=== PATIENT | male | born 2000 ===

== ENCOUNTER 2022-02-12 16:27 | Emergency (ER) | payer OTHER, MEDICAID, SELFPAY ==
[2022-02-12] VITALS (23 sets, daily range): BP systolic 93–147; BP diastolic 49–67; PULSE 42–114; RESP 17–32; O2SAT 94–100; BMI 15.6
[2022-02-12] MEDS: diphenhydrAMINE 50 MG/ML VIAL (17:12)
[2022-02-12] MEDS: diazePAM 10 MG/2 ML SYRINGE (17:12)
--- NOTE | 2022-02-12 17:29 | ED.PSYCH ---
HPI - Psych <Asya Edmondson DO - Last Filed: 02/13/22 08:10> General Chief Complaint: Psychiatric Symptoms Stated Complaint: Violent, Scratching self and others Time Seen by Provider: 02/12/22 17:10 History of Present Illness HPI Narrative: Patient is a 21-year-old male history of autism and seizures presenting by mom for increased agitation and scratching. He is nonverbal. He has been on Vimpat for seizure medication for years. They apparently tried weaning off Vimpat and adding Topamax. The agitation started getting severe about 5 days ago. He is scratching quite aggressively at himself and at her. She is unable to manage him. Clonazepam was also added to the regimen. He overall is quite agitated and redirectable at this time. Related Data Previous Rx's Medication Instructions Recorded clonazepam 0.5 mg tablet 0.5 mg PO BEDTIME #10 tabs 02/12/22 quetiapine 25 mg tablet (Seroquel) 25 mg PO DAILY PRN agitation #10 02/12/22 tabs zonisamide 100 mg capsule 100 mg PO DAILY #10 caps 02/12/22 Allergies Allergy/AdvReac Type Severity Reaction Status Date / Time perfume AdvReac Verified 02/12/22 18:18 Review of Systems <Asya Edmondson DO - Last Filed: 02/13/22 08:10> Review of Systems Narrative: Unable to obtain Exam <Asya Edmondson DO - Last Filed: 02/13/22 08:10> Initial Vital Signs Initial Vital Signs: Vital Signs Pulse Rate 114 H 02/12/22 17:34 Pulse Oximetry 96 02/12/22 17:34 Oxygen Delivery Method 02/12/22 17:34 Gen.: Awake alert agitated, thin HEENT: Atraumatic EOMI Neck: No JVD Lungs: Clear bilaterally Cardiac: Regular rate no murmur Abdomen: Soft Extremities: Moving all extremities hands are in mits Neurologic: Nonverbal at baseline per mom Skin: Scratches on legs and abdomen <Christina Becker, DO - Last Filed: 02/13/22 02:29> Initial Vital Signs Initial Vital Signs: Vital Signs Pulse Rate 114 H 02/12/22 17:34 Pulse Oximetry 96 02/12/22 17:34 Oxygen Delivery Method 02/12/22 17:34 Course <Asya Edmondson, DO - Last Filed: 02/13/22 08:10> Orders Ordered: Discontinued Medications Ketamine HCl (Ketamine 500 Mg/5 Ml Inj) 180 mg IM NOW ONE Stop: 02/12/22 17:41 Last Admin: 02/12/22 18:13 Dose: Not Given Documented By: AIDEN Zonisamide (Zonisamide 100 Mg Capsule) 100 mg PO NOW ONE Stop: 02/12/22 21:57 Last Admin: 02/12/22 22:21 Dose: 100 mg Documented By: AIDEN Vital Signs Vital signs: Vital Signs - 8 hr 02/12/22 18:30 02/12/22 18:30 02/12/22 18:53 Pulse Rate 50 L Respiratory Rate 21 Blood Pressure 100/57 L 102/55 L Pulse Oximetry 99 Oxygen Delivery Method 02/12/22 18:53 02/12/22 19:00 02/12/22 19:00 Pulse Rate 47 L 46 L Respiratory Rate 25 H 30 H Blood Pressure 101/58 L Pulse Oximetry 100 97 Oxygen Delivery Method 02/12/22 19:15 02/12/22 19:15 02/12/22 19:30 Pulse Rate 45 L Respiratory Rate 29 H Blood Pressure 97/53 L 105/57 L Pulse Oximetry 100 Oxygen Delivery Method 02/12/22 19:30 02/12/22 19:45 02/12/22 19:45 Pulse Rate 45 L 48 L Respiratory Rate 28 H 25 H Blood Pressure 105/57 L Pulse Oximetry 100 98 Oxygen Delivery Method 02/12/22 20:00 02/12/22 20:00 02/12/22 20:16 Pulse Rate 48 L 74 Respiratory Rate 25 H 26 H Blood Pressure 103/55 L Pulse Oximetry 99 99 Oxygen Delivery Method 02/12/22 20:16 02/12/22 20:30 02/12/22 20:30 Pulse Rate 47 L Respiratory Rate 25 H Blood Pressure 108/58 L 93/51 L Pulse Oximetry 99 Oxygen Delivery Method 02/12/22 20:45 02/12/22 20:45 02/12/22 21:00 Pulse Rate 45 L Respiratory Rate 19 Blood Pressure 104/60 105/60 Pulse Oximetry 99 Oxygen Delivery Method 02/12/22 21:00 02/12/22 21:15 02/12/22 21:15 Pulse Rate 42 L 55 L Respiratory Rate 20 21 Blood Pressure 110/67 Pulse Oximetry 100 94 Oxygen Delivery Method 02/12/22 21:30 02/12/22 21:30 02/12/22 21:45 Pulse Rate 48 L 47 L Respiratory Rate Blood Pressure 98/59 L Pulse Oximetry 99 99 Oxygen Delivery Method 02/12/22 21:49 02/12/22 21:49 02/12/22 22:00 Pulse Rate 45 L Respiratory Rate Blood Pressure 101/63 99/61 Pulse Oximetry 98 Oxygen Delivery Method 02/12/22 22:00 02/12/22 22:15 02/12/22 22:15 Pulse Rate 44 L 43 L Respiratory Rate 17 Blood Pressure 97/59 L Pulse Oximetry 100 99 Oxygen Delivery Method Room Air <Christina Becker DO - Last Filed: 02/13/22 02:29> Orders Ordered: Discontinued Medications Ketamine HCl (Ketamine 500 Mg/5 Ml Inj) 180 mg IM NOW ONE Stop: 02/12/22 17:41 Last Admin: 02/12/22 18:13 Dose: Not Given Documented By: AIDEN Zonisamide (Zonisamide 100 Mg Capsule) 100 mg PO NOW ONE Stop: 02/12/22 21:57 Last Admin: 02/12/22 22:21 Dose: 100 mg Documented By: AIDEN Consultations Consultation #1: 2nd callback from Neurology with [facility], Rip Quinteros neurology spoke with colleague from epilepsy subspecialty and this time they recommend adding zonisamide 100 mg daily. Clonazepam should only we meet down slowly can decreased by 0.5 mg on the evening dose but continue all other doses at this time. Continue Vimpat at current dosage. Did discuss possibly an antipsychotic and mom had stated patient had Seroquel in the past remotely and could give a short as needed course for this. But patient will need to follow-up with primary care or Psychiatry for recommendations this referral has already been made Time: 22:19 Vital Signs Vital signs: Vital Signs - 8 hr 02/12/22 18:30 02/12/22 18:30 02/12/22 18:53 Pulse Rate 50 L Respiratory Rate 21 Blood Pressure 100/57 L 102/55 L Pulse Oximetry 99 Oxygen Delivery Method 02/12/22 18:53 02/12/22 19:00 02/12/22 19:00 Pulse Rate 47 L 46 L Respiratory Rate 25 H 30 H Blood Pressure 101/58 L Pulse Oximetry 100 97 Oxygen Delivery Method 02/12/22 19:15 02/12/22 19:15 02/12/22 19:30 Pulse Rate 45 L Respiratory Rate 29 H Blood Pressure 97/53 L 105/57 L Pulse Oximetry 100 Oxygen Delivery Method 02/12/22 19:30 02/12/22 19:45 02/12/22 19:45 Pulse Rate 45 L 48 L Respiratory Rate 28 H 25 H Blood Pressure 105/57 L Pulse Oximetry 100 98 Oxygen Delivery Method 02/12/22 20:00 02/12/22 20:00 02/12/22 20:16 Pulse Rate 48 L 74 Respiratory Rate 25 H 26 H Blood Pressure 103/55 L Pulse Oximetry 99 99 Oxygen Delivery Method 02/12/22 20:16 02/12/22 20:30 02/12/22 20:30 Pulse Rate 47 L Respiratory Rate 25 H Blood Pressure 108/58 L 93/51 L Pulse Oximetry 99 Oxygen Delivery Method 02/12/22 20:45 02/12/22 20:45 02/12/22 21:00 Pulse Rate 45 L Respiratory Rate 19 Blood Pressure 104/60 105/60 Pulse Oximetry 99 Oxygen Delivery Method 02/12/22 21:00 02/12/22 21:15 02/12/22 21:15 Pulse Rate 42 L 55 L Respiratory Rate 20 21 Blood Pressure 110/67 Pulse Oximetry 100 94 Oxygen Delivery Method 02/12/22 21:30 02/12/22 21:30 02/12/22 21:45 Pulse Rate 48 L 47 L Respiratory Rate Blood Pressure 98/59 L Pulse Oximetry 99 99 Oxygen Delivery Method 02/12/22 21:49 02/12/22 21:49 02/12/22 22:00 Pulse Rate 45 L Respiratory Rate Blood Pressure 101/63 99/61 Pulse Oximetry 98 Oxygen Delivery Method 02/12/22 22:00 02/12/22 22:15 02/12/22 22:15 Pulse Rate 44 L 43 L Respiratory Rate 17 Blood Pressure 97/59 L Pulse Oximetry 100 99 Oxygen Delivery Method Room Air MDM - Psych <Asya Edmondson DO - Last Filed: 02/13/22 08:10> Lab Data Result diagrams: 02/12/22 17:55 02/12/22 17:55 Labs: Lab Results 02/12/22 02/12/22 02/12/22 Range/Units 17:55 17:55 17:55 WBC 4.5 (4.5-11.0) X10^3/uL RBC 4.73 (4.5-5.9) X10^6/uL Hgb 13.5 (13.5-17.5) g/dL Hct 39.8 L (41-53) % MCV 84.3 (80-100) fL MCH 28.6 (26-34) PG MCHC 33.9 (30-36) % RDW 12.9 (11.6-14.8) % Plt Count 263 (150-400) X10^3/uL Neut % (Auto) 51.9 (50-75) % Lymph % (Auto) 37.2 (25-40) % [place] % (Auto) 7.8 (3-14) % Eos % (Auto) 2.1 (2-4) % Baso % (Auto) 1.0 (0-2) % Neut # (Auto) 2300 (5275-9151) /uL Lymph # (Auto) 1700 (1531-4440) /uL [place] # (Auto) 400 (0-900) /uL Eos # (Auto) 100 (0-450) /uL Baso # (Auto) 0 (0-100) /uL Sodium 136 L (137-145) mmol/L Potassium 3.7 (3.4-5.1) mmol/L Chloride 102 (98-107) mmol/L Carbon Dioxide 26 (22-32) mmol/L BUN 23 H (9-20) mg/dL Creatinine 0.71 (0.66-1.25) mg/dL Estimated GFR > 60 (>60) mL/min BUN/Creatinine Ratio 32.4 H (6-22) Glucose 99 (70-100) mg/dL Lactate 3.0 H (0.7-2.1) mmol/L Calcium 9.1 (8.4-10.2) mg/dL Total Bilirubin 0.5 (0.2-1.3) mg/dL AST 42 (17-59) IU/L ALT 29 (<50) IU/L Alkaline Phosphatase 57 (38-126) U/L Total Creatine Kinase (55-170) U/L CK-MB (CK-2) (<2.37) ng/mL CK-MB (CK-2) Rel Index (1.5-5.0) % Troponin I (0.01-0.034) ng/mL Total Protein 7.0 (6.3-8.2) g/dL Albumin 4.3 (3.5-5.0) g/dL Globulin 2.7 (1.7-4.1) g/dL Albumin/Globulin Ratio 1.6 (1.0-2.8) Procalcitonin < 0.03 (<0.5) ng/mL Urine Color Urine Appearance Urine pH (4.5-8.0) Ur Specific [place] (1.000-1.035) Urine Protein (Negative) Urine Glucose (UA) (Negative) g/dL Urine Ketones (NEGATIVE) Urine Occult Blood (Negative) Urine Nitrate (Negative) Urine Bilirubin (NEGATIVE) Urine Urobilinogen (0.2) E.U./dL Ur Leukocyte Esterase (NEGATIVE) Urine RBC (0-5/HPF) Urine WBC (0-5/HPF) Ur Squamous Epith Cells (0-5/HPF) Ur Transition Epith Cell (0-5/HPF) Amorphous Sediment Urine Bacteria (None) Hyaline Casts (None) Urine Mucus (Negative) Ur Culture Indicated? SARS-CoV-2 (PCR) (Negative) 02/12/22 02/12/22 02/12/22 Range/Units 17:55 18:10 18:12 WBC (4.5-11.0) X10^3/uL RBC (4.5-5.9) X10^6/uL Hgb (13.5-17.5) g/dL Hct (41-53) % MCV (80-100) fL MCH (26-34) PG MCHC (30-36) % RDW (11.6-14.8) % Plt Count (150-400) X10^3/uL Neut % (Auto) (50-75) % Lymph % (Auto) (25-40) % [place] % (Auto) (3-14) % Eos % (Auto) (2-4) % Baso % (Auto) (0-2) % Neut # (Auto) (7781-4104) /uL Lymph # (Auto) (5287-6463) /uL [place] # (Auto) (0-900) /uL Eos # (Auto) (0-450) /uL Baso # (Auto) (0-100) /uL Sodium (137-145) mmol/L Potassium (3.4-5.1) mmol/L Chloride (98-107) mmol/L Carbon Dioxide (22-32) mmol/L BUN (9-20) mg/dL Creatinine (0.66-1.25) mg/dL Estimated GFR (>60) mL/min BUN/Creatinine Ratio (6-22) Glucose (70-100) mg/dL Lactate (0.7-2.1) mmol/L Calcium (8.4-10.2) mg/dL Total Bilirubin (0.2-1.3) mg/dL AST (17-59) IU/L ALT (<50) IU/L Alkaline Phosphatase (38-126) U/L Total Creatine Kinase 615 H (55-170) U/L CK-MB (CK-2) 4.24 H (<2.37) ng/mL CK-MB (CK-2) Rel Index 0.7 L (1.5-5.0) % Troponin I < 0.012 (0.01-0.034) ng/mL Total Protein (6.3-8.2) g/dL Albumin (3.5-5.0) g/dL Globulin (1.7-4.1) g/dL Albumin/Globulin Ratio (1.0-2.8) Procalcitonin (<0.5) ng/mL Urine Color Yellow Urine Appearance Clear Urine pH 5.5 (4.5-8.0) Ur Specific [place] >=1.030 H (1.000-1.035) Urine Protein Trace H (Negative) Urine Glucose (UA) Negative (Negative) g/dL Urine Ketones Trace H (NEGATIVE) Urine Occult Blood 2+ H (Negative) Urine Nitrate Negative (Negative) Urine Bilirubin Negative (NEGATIVE) Urine Urobilinogen 0.2 (0.2) E.U./dL Ur Leukocyte Esterase Negative (NEGATIVE) Urine RBC 10-30/hpf H (0-5/HPF) Urine WBC 1-5/hpf (0-5/HPF) Ur Squamous Epith Cells 1-5 /hpf (0-5/HPF) Ur Transition Epith Cell 1-5/hpf (0-5/HPF) Amorphous Sediment 1+ Urine Bacteria Occasional (0-1) (None) Hyaline Casts 5-10/lpf (None) Urine Mucus 1+ H (Negative) Ur Culture Indicated? Cult not indicated SARS-CoV-2 (PCR) Negative (Negative) 02/12/22 Range/Units 21:11 WBC (4.5-11.0) X10^3/uL RBC (4.5-5.9) X10^6/uL Hgb (13.5-17.5) g/dL Hct (41-53) % MCV (80-100) fL MCH (26-34) PG MCHC (30-36) % RDW (11.6-14.8) % Plt Count (150-400) X10^3/uL Neut % (Auto) (50-75) % Lymph % (Auto) (25-40) % [place] % (Auto) (3-14) % Eos % (Auto) (2-4) % Baso % (Auto) (0-2) % Neut # (Auto) (3013-7520) /uL Lymph # (Auto) (2909-8057) /uL [place] # (Auto) (0-900) /uL Eos # (Auto) (0-450) /uL Baso # (Auto) (0-100) /uL Sodium (137-145) mmol/L Potassium (3.4-5.1) mmol/L Chloride (98-107) mmol/L Carbon Dioxide (22-32) mmol/L BUN (9-20) mg/dL Creatinine (0.66-1.25) mg/dL Estimated GFR (>60) mL/min BUN/Creatinine Ratio (6-22) Glucose (70-100) mg/dL Lactate 0.8 (0.7-2.1) mmol/L Calcium (8.4-10.2) mg/dL Total Bilirubin (0.2-1.3) mg/dL AST (17-59) IU/L ALT (<50) IU/L Alkaline Phosphatase (38-126) U/L Total Creatine Kinase (55-170) U/L CK-MB (CK-2) (<2.37) ng/mL CK-MB (CK-2) Rel Index (1.5-5.0) % Troponin I (0.01-0.034) ng/mL Total Protein (6.3-8.2) g/dL Albumin (3.5-5.0) g/dL Globulin (1.7-4.1) g/dL Albumin/Globulin Ratio (1.0-2.8) Procalcitonin (<0.5) ng/mL Urine Color Urine Appearance Urine pH (4.5-8.0) Ur Specific [place] (1.000-1.035) Urine Protein (Negative) Urine Glucose (UA) (Negative) g/dL Urine Ketones (NEGATIVE) Urine Occult Blood (Negative) Urine Nitrate (Negative) Urine Bilirubin (NEGATIVE) Urine Urobilinogen (0.2) E.U./dL Ur Leukocyte Esterase (NEGATIVE) Urine RBC (0-5/HPF) Urine WBC (0-5/HPF) Ur Squamous Epith Cells (0-5/HPF) Ur Transition Epith Cell (0-5/HPF) Amorphous Sediment Urine Bacteria (None) Hyaline Casts (None) Urine Mucus (Negative) Ur Culture Indicated? SARS-CoV-2 (PCR) (Negative) MDM Narrative Medical decision making narrative: The patient is not redirectable. Mom wants him checked out. This is not his normal behavior. He takes benzos at baseline. He is given initially Valium and Benadryl to help calm him however that needed to be re-dosed so he received a total of 5 mg Valium 50 of Benadryl. Still not calming down. He is given 5 mg of Haldol all in a blanket was placed around 2. He finally did start to calm down. We were able to transfer him start an IV and blood work. Agitation may be secondary to medication changes versus infection. Patient signed out to Dr. Becker for further management <Christina Becker, - Last Filed: 02/13/22 02:29> Lab Data Labs: Lab Results 02/12/22 02/12/22 02/12/22 Range/Units 17:55 17:55 17:55 WBC 4.5 (4.5-11.0) X10^3/uL RBC 4.73 (4.5-5.9) X10^6/uL Hgb 13.5 (13.5-17.5) g/dL Hct 39.8 L (41-53) % MCV 84.3 (80-100) fL MCH 28.6 (26-34) PG MCHC 33.9 (30-36) % RDW 12.9 (11.6-14.8) % Plt Count 263 (150-400) X10^3/uL Neut % (Auto) 51.9 (50-75) % Lymph % (Auto) 37.2 (25-40) % [place] % (Auto) 7.8 (3-14) % Eos % (Auto) 2.1 (2-4) % Baso % (Auto) 1.0 (0-2) % Neut # (Auto) 2300 (5368-4717) /uL Lymph # (Auto) 1700 (8401-6910) /uL [place] # (Auto) 400 (0-900) /uL Eos # (Auto) 100 (0-450) /uL Baso # (Auto) 0 (0-100) /uL Sodium 136 L (137-145) mmol/L Potassium 3.7 (3.4-5.1) mmol/L Chloride 102 (98-107) mmol/L Carbon Dioxide 26 (22-32) mmol/L BUN 23 H (9-20) mg/dL Creatinine 0.71 (0.66-1.25) mg/dL Estimated GFR > 60 (>60) mL/min BUN/Creatinine Ratio 32.4 H (6-22) Glucose 99 (70-100) mg/dL Lactate 3.0 H (0.7-2.1) mmol/L Calcium 9.1 (8.4-10.2) mg/dL Total Bilirubin 0.5 (0.2-1.3) mg/dL AST 42 (17-59) IU/L ALT 29 (<50) IU/L Alkaline Phosphatase 57 (38-126) U/L Total Creatine Kinase (55-170) U/L CK-MB (CK-2) (<2.37) ng/mL CK-MB (CK-2) Rel Index (1.5-5.0) % Troponin I (0.01-0.034) ng/mL Total Protein 7.0 (6.3-8.2) g/dL Albumin 4.3 (3.5-5.0) g/dL Globulin 2.7 (1.7-4.1) g/dL Albumin/Globulin Ratio 1.6 (1.0-2.8) Procalcitonin < 0.03 (<0.5) ng/mL Urine Color Urine Appearance Urine pH (4.5-8.0) Ur Specific [place] (1.000-1.035) Urine Protein (Negative) Urine Glucose (UA) (Negative) g/dL Urine Ketones (NEGATIVE) Urine Occult Blood (Negative) Urine Nitrate (Negative) Urine Bilirubin (NEGATIVE) Urine Urobilinogen (0.2) E.U./dL Ur Leukocyte Esterase (NEGATIVE) Urine RBC (0-5/HPF) Urine WBC (0-5/HPF) Ur Squamous Epith Cells (0-5/HPF) Ur Transition Epith Cell (0-5/HPF) Amorphous Sediment Urine Bacteria (None) Hyaline Casts (None) Urine Mucus (Negative) Ur Culture Indicated? SARS-CoV-2 (PCR) (Negative) 02/12/22 02/12/22 02/12/22 Range/Units 17:55 18:10 18:12 WBC (4.5-11.0) X10^3/uL RBC (4.5-5.9) X10^6/uL Hgb (13.5-17.5) g/dL Hct (41-53) % MCV (80-100) fL MCH (26-34) PG MCHC (30-36) % RDW (11.6-14.8) % Plt Count (150-400) X10^3/uL Neut % (Auto) (50-75) % Lymph % (Auto) (25-40) % [place] % (Auto) (3-14) % Eos % (Auto) (2-4) % Baso % (Auto) (0-2) % Neut # (Auto) (7916-9116) /uL Lymph # (Auto) (7619-8885) /uL [place] # (Auto) (0-900) /uL Eos # (Auto) (0-450) /uL Baso # (Auto) (0-100) /uL Sodium (137-145) mmol/L Potassium (3.4-5.1) mmol/L Chloride (98-107) mmol/L Carbon Dioxide (22-32) mmol/L BUN (9-20) mg/dL Creatinine (0.66-1.25) mg/dL Estimated GFR (>60) mL/min BUN/Creatinine Ratio (6-22) Glucose (70-100) mg/dL Lactate (0.7-2.1) mmol/L Calcium (8.4-10.2) mg/dL Total Bilirubin (0.2-1.3) mg/dL AST (17-59) IU/L ALT (<50) IU/L Alkaline Phosphatase (38-126) U/L Total Creatine Kinase 615 H (55-170) U/L CK-MB (CK-2) 4.24 H (<2.37) ng/mL CK-MB (CK-2) Rel Index 0.7 L (1.5-5.0) % Troponin I < 0.012 (0.01-0.034) ng/mL Total Protein (6.3-8.2) g/dL Albumin (3.5-5.0) g/dL Globulin (1.7-4.1) g/dL Albumin/Globulin Ratio (1.0-2.8) Procalcitonin (<0.5) ng/mL Urine Color Yellow Urine Appearance Clear Urine pH 5.5 (4.5-8.0) Ur Specific [place] >=1.030 H (1.000-1.035) Urine Protein Trace H (Negative) Urine Glucose (UA) Negative (Negative) g/dL Urine Ketones Trace H (NEGATIVE) Urine Occult Blood 2+ H (Negative) Urine Nitrate Negative (Negative) Urine Bilirubin Negative (NEGATIVE) Urine Urobilinogen 0.2 (0.2) E.U./dL Ur Leukocyte Esterase Negative (NEGATIVE) Urine RBC 10-30/hpf H (0-5/HPF) Urine WBC 1-5/hpf (0-5/HPF) Ur Squamous Epith Cells 1-5 /hpf (0-5/HPF) Ur Transition Epith Cell 1-5/hpf (0-5/HPF) Amorphous Sediment 1+ Urine Bacteria Occasional (0-1) (None) Hyaline Casts 5-10/lpf (None) Urine Mucus 1+ H (Negative) Ur Culture Indicated? Cult not indicated SARS-CoV-2 (PCR) Negative (Negative) 02/12/22 Range/Units 21:11 WBC (4.5-11.0) X10^3/uL RBC (4.5-5.9) X10^6/uL Hgb (13.5-17.5) g/dL Hct (41-53) % MCV (80-100) fL MCH (26-34) PG MCHC (30-36) % RDW (11.6-14.8) % Plt Count (150-400) X10^3/uL Neut % (Auto) (50-75) % Lymph % (Auto) (25-40) % [place] % (Auto) (3-14) % Eos % (Auto) (2-4) % Baso % (Auto) (0-2) % Neut # (Auto) (7867-4025) /uL Lymph # (Auto) (2782-3338) /uL [place] # (Auto) (0-900) /uL Eos # (Auto) (0-450) /uL Baso # (Auto) (0-100) /uL Sodium (137-145) mmol/L Potassium (3.4-5.1) mmol/L Chloride (98-107) mmol/L Carbon Dioxide (22-32) mmol/L BUN (9-20) mg/dL Creatinine (0.66-1.25) mg/dL Estimated GFR (>60) mL/min BUN/Creatinine Ratio (6-22) Glucose (70-100) mg/dL Lactate 0.8 (0.7-2.1) mmol/L Calcium (8.4-10.2) mg/dL Total Bilirubin (0.2-1.3) mg/dL AST (17-59) IU/L ALT (<50) IU/L Alkaline Phosphatase (38-126) U/L Total Creatine Kinase (55-170) U/L CK-MB (CK-2) (<2.37) ng/mL CK-MB (CK-2) Rel Index (1.5-5.0) % Troponin I (0.01-0.034) ng/mL Total Protein (6.3-8.2) g/dL Albumin (3.5-5.0) g/dL Globulin (1.7-4.1) g/dL Albumin/Globulin Ratio (1.0-2.8) Procalcitonin (<0.5) ng/mL Urine Color Urine Appearance Urine pH (4.5-8.0) Ur Specific [place] (1.000-1.035) Urine Protein (Negative) Urine Glucose (UA) (Negative) g/dL Urine Ketones (NEGATIVE) Urine Occult Blood (Negative) Urine Nitrate (Negative) Urine Bilirubin (NEGATIVE) Urine Urobilinogen (0.2) E.U./dL Ur Leukocyte Esterase (NEGATIVE) Urine RBC (0-5/HPF) Urine WBC (0-5/HPF) Ur Squamous Epith Cells (0-5/HPF) Ur Transition Epith Cell (0-5/HPF) Amorphous Sediment Urine Bacteria (None) Hyaline Casts (None) Urine Mucus (Negative) Ur Culture Indicated? SARS-CoV-2 (PCR) (Negative) Imaging Data CT scan - head: Radiologist's Impression: [address] [address] [address] Scan Report Signed Patient: Matt Franklin MR#: [id number] : 2000 Acct:[id number] Age/Sex: 21 / M Date of Service: 02/12/22 Loc: ED Accession Number: [id number] ?? Procedure: CT head/brain wo con Ordering Provider: Christina Becker D.O. PROCEDURE:? CT HEAD/BRAIN WO CON ? INDICATIONS:? altered behavior ? TECHNIQUE:? Noncontrast 4.5 mm thick angled axial sections acquired from the foramen magnum to the vertex, with coronal and sagittal reformats.? For radiation dose reduction, the following was used:? automated exposure control, adjustment of mA and/or kV according to patient size.? ? COMPARISON:? None. ? FINDINGS:? Image quality:? Excellent.? ? CSF spaces:? Basal cisterns are patent.? No extra-axial fluid collections.? Ventricles are normal in size and shape.? ? Brain:? No midline shift.? No intracranial masses or hemorrhage.? Cheek-white matter interface is normal.? ? Skull and face:? Calvarium and visualized facial bones are intact, without suspicious lesions.? ? Sinuses:? Visualized sinuses and mastoids are clear.? ? IMPRESSION:? No evidence acute intracranial process. ? ? Dictated by: Robert Guzman M.D. on 02/12/2022 at 19:33 ? ? Approved by: Robert Guzman M.D. on 02/12/2022 at 19:34?? Chest x-ray: Radiologist's Impression: Close Chest X-Ray (Signed) ThomasAfshinRobert - 02/12/[address] (Signed) Afshin Guzmanderic - 02/12/22 Launch?[address] [address] XRay Report Signed Patient: Matt Franklin MR#: [id number] : 2000 Acct:[id number] Age/Sex: 21 / M Date of Service: 02/12/22 Loc: ED Accession Number: [id number] ?? Procedure: XR chest 1V Ordering Provider: Christina Becker D.O. PROCEDURE:? XR CHEST 1V ? INDICATIONS:? altered behavior ? TECHNIQUE:? One view of the chest was acquired.? ? COMPARISON:? None. ? FINDINGS:? ? Surgical changes and devices:? None.? ? Lungs and pleura:? Lungs are clear.? No pleural effusions or pneumothorax.? ? Mediastinum:? Mediastinal contours appear normal.? Heart size is normal.? ? Bones and chest wall:? No suspicious bony lesions.? Overlying soft tissues appear unremarkable.? ? IMPRESSION:? No evidence acute pulmonary process. ? ? ? Dictated by: Robert Guzman M.D. on 02/12/2022 at 19:23 ? ? Approved by: Robert Guzman M.D. on 02/12/2022 at 19:24 ECG Data Attestation: I personally reviewed and interpreted this ECG as follows: Interpretation: Sinus bradycardia rate of 40 9p are 152 QRS of [address]-elevation but patient does have atypical slipped. No priors for comparison. [facility] Narrative Medical decision making narrative: The patient is not redirectable. Mom wants him checked out. This is not his normal behavior. He takes benzos at baseline. He is given initially Valium and Benadryl to help calm him however that needed to be re-dosed so he received a total of 5 mg Valium 50 of Benadryl. Still not calming down. He is given 5 mg of Haldol all in a blanket was placed around 2. He finally did start to calm down. We were able to transfer him start an IV and blood work. Agitation may be secondary to medication changes versus infection. Patient signed out to Dr. Becker for further management. 02/12/22 [place]: Patient signed out to myself by Dr. Edmondson. Patient seen and evaluated independently by myself. Patient was having breakthrough seizures with his Vimpat it was decreased and they were changing him to Topamax when he started having increasing aggression and self-injury. This began within the 1st 5 days of medication. They stopped the Topamax, they have been increasing the Vimpat but added clonazepam on board for seizures as well he is had that intermittently in the past but not regularly. Patient is once again began having aggressive behavior and self injury. Mom states that he has occasionally been aggressive with others including herself but not regularly or persistently and does not usually cause self injury. His labs do show an elevated lactate, CBC, CMP, are normal, CK is elevated but patient has been struggling. Troponins negative. UA showed trace ketones some blood but likely from catheterization. Patient is COVID negative. EKG shows bradycardia with slipped T-waves but no priors for comparison. No known cardiac history. Patient has head CT and chest x-ray obtained Neurology was consulted through [facility]. Patient sees Dr. Barkley for neurology. Spoke with Dr. Rip Quinteros from Neurology, reviewed timeliness current medications it was difficult tell patient was actively on this was clarified. They called back with recommendations after consulting with one of the neuroepilepsy subspecialist. Recommend adding zonisamide and possibly a short-term antipsychotic and very slowly weaning down by 0.5 mg in the evening dose of clonazepam but continuing the a.m. dose of clonazepam. Patient has regular neurologist is available tomorrow and recommend to call and chat with them as well. Discussed with mom she feels comfortable with this plan, we do have a dose of zonisamide available for this evening. Patient has been calm in department. BP and HR have remained similar throughout stay. Patient ambulated to car upon discharge. Long discussion with mother about plan and medications as she is the primary caregiver/coordinator of medical care. Discharge Plan Departure Patient Disposition: Home Clinical Impression: Agitation, Seizure disorder Activity Restrictions/Additional Instructions: Follow with your neurology team, Dr. Coleman is director of customer acquisition tomorrow. Feel free to call and review the plan tomorrow. As discussed your goal is to wean down clonazepam over time. If it is stopped suddenly this can cause withdrawal seizures. Continue Vimpat 2.5 tablets in the a.m. You may add zonisamide 100 mg daily (1 tablet) Continue Clonazepam 1 mg daily until your neurologist recommend to decrease this dose Continue Vimpat 2 tablets for dinner time dose. For your evening medication clonazepam 1 mg instead of 1.5 mg Continue your melatonin at your normal dose. *You can give seroquel 25mg once daily for agitation or behavior issues. This is often a sedating medication and may be helpful to give before sleep. Prescription sent to [facility] in [place]. Please return for worsening agitation, fevers, changes in mental status, seizure activity, if you have any other concerns about infection or other changes or other new or concerning changes. Prescriptions: New zonisamide 100 mg capsule 100 mg PO DAILY Qty: 10 0RF clonazepam 0.5 mg tablet 0.5 mg PO BEDTIME Qty: 10 0RF Rx Instructions: administer 30 minutes before bedtime quetiapine [Seroquel] 25 mg tablet 25 mg PO DAILY PRN (Reason: agitation) Qty: 10 0RF Visit Report Forms: Patient Portal/API
[2022-02-12] MEDS: HALOPERIDOL 5 MG/ML VIAL (17:31)
--- NOTE | 2022-02-12 17:40 | PC.NURSE ---
Per mother, was reducing Vimpat and starting topamax but with onset of topamax patient started becoming aggressive.
[2022-02-12 18:08] LABS: Add Manual Diff / Slide Review NO; Basophils Absolute Auto 0 /uL (0-100); Eosinophils Absolute Auto 100 /uL (0-450); Eosinophils Percent Auto 2.1 % (2-4); Hematocrit 39.8 % (41-53); Hemoglobin 13.5 g/dL (13.5-17.5); Lymphocytes Absolute Auto 1700 /uL (1100-4500); Lymphocytes Percent Auto 37.2 % (25-40); Mean Corpuscular HGB Conc 33.9 % (30-36); Mean Corpuscular Hemoglobin 28.6 PG (26-34); Mean Corpuscular Volume 84.3 fL (80-100); Monocytes Absolute Auto 400 /uL (0-900); Monocytes Percent Auto 7.8 % (3-14); Neutrophils Absolute Auto 2300 /uL (1500-7000); Neutrophils Percent Auto 51.9 % (50-75); Platelet Count 263 X10^3/uL (150-400); Red Blood Cell Count 4.73 X10^6/uL (4.5-5.9); Red Cell Distribution Width 12.9 % (11.6-14.8); White Blood Cell Count 4.5 X10^3/uL (4.5-11.0)
--- NOTE | 2022-02-12 18:14 | DI.CT.S_ITS ---
PROCEDURE: CT HEAD/BRAIN WO CON INDICATIONS: altered behavior TECHNIQUE: Noncontrast 4.5 mm thick angled axial sections acquired from the foramen magnum to the vertex, with coronal and sagittal reformats. For radiation dose reduction, the following was used: automated exposure control, adjustment of mA and/or kV according to patient size. COMPARISON: None. FINDINGS: Image quality: Excellent. CSF spaces: Basal cisterns are patent. No extra-axial fluid collections. Ventricles are normal in size and shape. Brain: No midline shift. No intracranial masses or hemorrhage. Cheek-white matter interface is normal. Skull and face: Calvarium and visualized facial bones are intact, without suspicious lesions. Sinuses: Visualized sinuses and mastoids are clear. IMPRESSION: No evidence acute intracranial process. Dictated by: Robert Guzman M.D. on 02/12/2022 at 19:33 Approved by: Robert Guzman M.D. on 02/12/2022 at 19:34
--- NOTE | 2022-02-12 18:16 | DI.RAD.S_ITS ---
PROCEDURE: XR CHEST 1V INDICATIONS: altered behavior TECHNIQUE: One view of the chest was acquired. COMPARISON: None. FINDINGS: Surgical changes and devices: None. Lungs and pleura: Lungs are clear. No pleural effusions or pneumothorax. Mediastinum: Mediastinal contours appear normal. Heart size is normal. Bones and chest wall: No suspicious bony lesions. Overlying soft tissues appear unremarkable. IMPRESSION: No evidence acute pulmonary process. Dictated by: Robert Guzman M.D. on 02/12/2022 at 19:23 Approved by: Robert Guzman M.D. on 02/12/2022 at 19:24
[2022-02-12 18:22] LABS: Appearance Urine UA CLEAR; Bilirubin Urine UA NEGATIVE (NEGATIVE); Color Urine UA YELLOW; Glucose Urine UA NEGATIVE (Negative); Ketones Urine UA TRACE (NEGATIVE); Leukocyte Esterase Urine UA NEGATIVE (NEGATIVE); Nitrite Urine UA NEGATIVE (Negative); Occult Blood Urine UA 2+ (Negative); Protein Urine UA TRACE (Negative); Specific Gravity Urine UA >=1.030 (1.000-1.035); Urobilinogen Urine UA 0.2 E.U./dL (0.2); pH Urine UA 5.5 (4.5-8.0)
[2022-02-12 18:26] LABS: Alanine Aminotransferase 29 IU/L (<50); Albumin 4.3 g/dL (3.5-5.0); Albumin Globulin Ratio 1.6 (1.0-2.8); Alkaline Phosphatase 57 U/L (38-126); Aspartate Aminotransferase 42 IU/L (17-59); BUN Creatinine Ratio 32.4 (6-22); Bilirubin Total 0.5 mg/dL (0.2-1.3); Blood Urea Nitrogen 23 mg/dL (9-20); Calcium 9.1 mg/dL (8.4-10.2); Carbon Dioxide 26 mmol/L (22-32); Chloride 102 mmol/L (98-107); Estimated Glomerular Filt Rate > 60 mL/min (>60); Globulin 2.7 g/dL (1.7-4.1); Glucose 99 mg/dL (70-100); HEMOLYSIS < 15 (0-50); Potassium 3.7 mmol/L (3.4-5.1); Sodium 136 mmol/L (137-145)
[2022-02-12 18:38] LABS: Amorphous Sediment Urine 1+; Bacteria Urine Occasional (0-1); Culture Indicated Urine Cult Not Indicated; Hyaline Casts Urine 5-10/LPF; Mucus Urine 1+ (Negative); RBC Urine 10-30/HPF (0-5/HPF); Squamous Epithelial Cell Urine 1-5 /HPF (0-5/HPF); Transitional Epi Cells Urine 1-5/HPF (0-5/HPF); WBC Urine 1-5/HPF (0-5/HPF)
[2022-02-12 18:50] LABS: COVID19 -Nasal RAPID Negative (Negative)
[2022-02-12 18:52] LABS: Creatine Kinase 615 U/L (55-170)
[2022-02-12 18:54] LABS: Procalcitonin < 0.03 ng/mL (<0.5)
[2022-02-12 19:04] LABS: Troponin I < 0.012 ng/mL (0.01-0.034)
[2022-02-12 19:07] LABS: CKMB % Relative Index 0.7 % (1.5-5.0); Creatine Kinase MB 4.24 ng/mL (<2.37)
[2022-02-12 19:59] LABS: Reflexed Lactate in 2 Hours Y
[2022-02-12 21:39] LABS: Lactate 2HR (Lactic Acid Rflx) 0.8 mmol/L (0.7-2.1)
[2022-02-12] MEDS: ZONISAMIDE 100 MG CAPSULE PO (22:21)
== END 2022-02-12 22:30 | disposition home or self-care (01) ==
PROVIDERS: Emergency Medicine; Emergency Provider Emergency Medicine
DX: R45.1 Restlessness and agitation (principal); G40.909 Epilepsy, unspecified, not intractable, without status epilepticus; R00.1 Bradycardia, unspecified; Z20.822 Contact with and (suspected) exposure to COVID-19
CPT/HCPCS: 36415; 70450; 71045; 80053; 81001; 82550; 82553; 83605; 84145; 84484; 85025; 87635; 93005; 93010; 99284; C9803; J1200; J1630; J3360